=== PATIENT | female | born 1995 | race Caucasian/White ===

== ENCOUNTER → 2016-03-22 | Outpatient (CLI) | payer OTHER ==
--- NOTE | 2016-03-22 17:12 | MAMMOGRAPHY REPORT ---
ULTRASOUND OF RIGHT BREAST: 03/22/2016 CLINICAL HISTORY: 21-year-old woman who presents after one episode of milky nipple discharge, less t paredes 1 drop, was elicited after squeezing in the right breast. Patient denies any palpable lump, blo [place] nipple discharge, skin erythema or skin thickening. No strong family history of breast cancer. COMPARISON: No prior exams were available for comparison. FINDINGS: Real-time high-resolution sonographic evaluation was performed in the retroareolar and pe riareolar right breast to evaluate the single episode of one drop of milky nonspontaneous nipple dis charge. Normal glandular tissue and normal-appearing ducts are identified coursing up towards the n ipple. There is no evidence of an intraductal mass, significant duct ectasia or suspicious solid or cystic mass. IMPRESSION: ACR BI-RADS CATEGORY 1: NEGATIVE There is no sonographic evidence of malignancy or other suspicious abnormality to explain the single episode of nonspontaneous milky right nipple discharge. Therefore, clinical follow-up is recommend ed. If indicated, cytologic analysis of the fluid may be useful. These results and recommendations were discussed with the patient at the time of the exam. Janki Davison M.D. ay/:03/22/2016 12:28:40 Principle Industrial Hygienist: Dr. Janki Davison, [facility] letter sent: Normal 1/2 BI-RADS Code: ACR BI-RADS Category 1: Negative
== END | disposition home or self-care (01) ==
LOC: C.MAMM 10:30
PROVIDERS: ATTEND Family Medicine
DX: N64.52 Nipple discharge (principal)